=== PATIENT | female | born 1955 | race Caucasian/White ===

== ENCOUNTER 2017-08-26 10:30 | Inpatient (IN) | payer SELFPAY ==
[2017-08-26] MEDS ORDERED: NORMAL SALINE 1000 ML 1,000 ML IV ONE ×2 (10:57→11:54)
--- NOTE | 2017-08-26 11:00 | ER Document Report ---
ED Medical Screen (RME) - General Chief Complaint: Abdominal Pain Stated Complaint: FLU LIKE SYMPTOMS Time Seen by Provider: 08/26/17 10:56 Mode of Arrival: Wheelchair Information source: Patient COUNTRY TRAVELED TO/FROM: [facility] - [facility] Patient complains to provider of: flu-like symptoms; abd. pain Onset: Other - pt states she has been "sick" for several days with generalized abdominal pain and flu-like symptoms with cough and congestion. Plus vomiting. Did not get a flu shot this year. - Related Data Allergies/Adverse Reactions: No Known Allergies Allergy (Verified 08/26/17 10:31) Home Medications: Current Home Medications No Home Medications 08/26/17 [History] Past Medical History - Social History Chew tobacco use (# tins/day): No Frequency of alcohol use: Occasional Drug Abuse: None Renal/ Medical History: Denies: Hx Peritoneal Dialysis Physical Exam - Vital signs Vitals: Temp Pulse Resp BP Pulse Ox 97.6 F 116 H 20 127/81 H 98 08/26/17 10:35 08/26/17 10:35 08/26/17 10:35 08/26/17 10:35 08/26/17 10:35 Course - Vital Signs Vital signs: Temp Pulse Resp BP Pulse Ox 97.6 F 116 H 20 127/81 H 98 08/26/17 10:35 08/26/17 10:35 08/26/17 10:35 08/26/17 10:35 08/26/17 10:35
--- NOTE | 2017-08-26 12:03 | RADIOLOGY REPORT (SQ) ---
EXAM DESCRIPTION: ACUTE ABDOMEN SERIES COMPLETED DATE/TIME: 08/26/2017 11:51 am REASON FOR STUDY: abd pain COMPARISON: None. NUMBER OF VIEWS: Three views. TECHNIQUE: Frontal chest, supine abdomen and upright/decubitus abdomen radiographic images acquired. LIMITATIONS: None. FINDINGS: CHEST: Lungs clear of infiltrates. FREE AIR: None. No abnormal gas collections. BOWEL GAS PATTERN: Nonobstructive pattern. No dilated loops or air fluid levels. CALCIFICATIONS: No suspicious calcifications. HARDWARE: None in the abdomen. SOFT TISSUES: No gross mass or suggestion of organomegaly. BONES: No acute fracture. No worrisome bone lesions. OTHER: No other significant finding. IMPRESSION: NO RADIOGRAPHIC EVIDENCE FOR ACUTE ABDOMINAL DISEASE. TECHNICAL DOCUMENTATION: JOB ID: [id number] [employer]- All Rights Reserved
[2017-08-26 12:15] LABS: ALANINE AMINOTRANSFERASE 25 U/L (9-52); ALBUMIN 3.9 g/dL (3.5-5.0); ALKALINE PHOSPHATASE 216 U/L (38-126); ASPARTATE AMINO TRANSFERASE 25 U/L (14-36); BILIRUBIN,DIRECT 0.9 mg/dL (0.0-0.4); BLOOD UREA NITROGEN 26 mg/dL (7-20); CALCIUM 11.6 mg/dL (8.4-10.2); CARBON DIOXIDE 11 mmol/L (22-30); CHLORIDE 92 mmol/L (98-107); CREATININE RESULT 0.74 mg/dL (0.52-1.25); GLUCOSE 340 mg/dL (75-110); LIPASE 24.8 U/L (23-300); POTASSIUM 3.9 mmol/L (3.6-5.0)
[2017-08-26 12:17] LABS: HEMATOCRIT 41.6 % (36.0-47.0); HEMOGLOBIN 13.9 g/dL (12.0-15.5); HGB HCT DIFFERENCE 0.1; MEAN CORPUSCULAR HEMOGLOBIN 29.3 pg (27.0-33.4); MEAN CORPUSCULAR HGB CONC 33.4 g/dL (32.0-36.0); MEAN CORPUSCULAR VOLUME 88 fl (80-97); RED BLOOD COUNT 4.75 10^6/uL (3.72-5.28); RED CELL DISTRIBUTION WIDTH 15.1 % (11.5-14.0); WHITE BLOOD COUNT 15.2 10^3/uL (4.0-10.5)
[2017-08-26 12:19] LABS: BAND NEUTROPHILS % (MANUAL) 6 % (3-5); BASOPHILS % (MANUAL) 0 % (0-2); EOSINOPHILS % (MANUAL) 0 % (0-6); LYMPHOCYTES % (MANUAL) 6 % (13-45); TOTAL CELLS COUNTED 100; TOXIC GRANULATION SLIGHT
[2017-08-26 12:20] LABS: PLATELET CLUMPS PRESENT; RBC MORPHOLOGY COMMENT NORMO-CYTIC/CHROMIC
[2017-08-26 12:22] LABS: SODIUM 129.5 mmol/L (137-145)
[2017-08-26 12:23] LABS: APPEARANCE,URINE CLOUDY; BILIRUBIN,URINE NEGATIVE (NEGATIVE); GLUCOSE, URINE >=500 mg/dL (NEGATIVE); KETONES,URINE 80 mg/dL (NEGATIVE); LEUKOCYTE ESTERASE,URINE TRACE (NEGATIVE); NITRITE,URINE NEGATIVE (NEGATIVE); PROTEIN,URINE 100 mg/dL (NEGATIVE); URINE SPECIFIC GRAVITY 1.018
--- NOTE | 2017-08-26 12:23 | ER Document Report ---
ED General - General Chief Complaint: Abdominal Pain Stated Complaint: ABDOMINAL PAIN Time Seen by Provider: 08/26/17 10:56 Mode of Arrival: Wheelchair Information source: Patient Notes: 61-year-old female that presents today stating that she has felt "sick" for 1 week. She states she has had some increased frequency of urination with some dysuria as well as some intermittent vomiting. She states some subjective fevers initially without diarrhea. She also states some suprapubic nonradiating abdominal discomfort with some bilateral back pain. She denies any chest pain, cough, or leg swelling. Patient states she is supposed to be taking metformin twice a day but does not have insurance or does not have a primary care physician. She states she has not taken any diabetic medications in greater than a year. Patient states she has a history of kidney stones. COUNTRY TRAVELED TO/FROM: [facility] - [facility] Onset: Other - See above Quality of pain: Burning Severity: Mild Pain Level: Denies Associated symptoms: Other - See above Exacerbated by: Denies Relieved by: Denies Similar symptoms previously: No Recently seen / treated by doctor: No - Related Data Allergies/Adverse Reactions: No Known Allergies Allergy (Verified 08/26/17 10:31) Home Medications: Current Home Medications No Home Medications 08/26/17 [History] Past Medical History - General Information source: Patient - Social History Smoking Status: Former Smoker Cigarette use (# per day): No Chew tobacco use (# tins/day): No Smoking Education Provided: No Frequency of alcohol use: Occasional Drug Abuse: None Family History: Reviewed & Not Pertinent Patient has suicidal ideation: No Patient has homicidal ideation: No Renal/ Medical History: Denies: Hx Peritoneal Dialysis Review of Systems - Review of Systems Constitutional: Fever. denies: Malaise EENT: denies: Eye discharge, Nose discharge Cardiovascular: denies: Chest pain, Palpitations Respiratory: denies: Short of breath Gastrointestinal: Vomiting. denies: Diarrhea Genitourinary: Burning, Dysuria, Flank pain, Urgency. denies: Hematuria, Retention Musculoskeletal: denies: Leg swelling Skin: Other - no hives. denies: Rash Neurological/Psychological: Other - no slurred speech -: Yes All other systems reviewed and negative Physical Exam - Vital signs Vitals: Temp Pulse Resp BP Pulse Ox 97.6 F 116 H 20 127/81 H 98 08/26/17 10:35 12/10/17 10:35 08/26/17 10:35 08/26/17 10:35 08/26/17 10:35 Notes: Reviewed vital signs and nursing note as charted by RN. CONSTITUTIONAL: Alert and oriented and responds appropriately to questions. Well -appearing; well-nourished HEAD: Normocephalic; atraumatic EYES: PERRL ENT: Normal nose; no rhinorrhea; moist mucous membranes; pharynx without lesions noted NECK: Supple without meningismus; non-tender; no cervical lymphadenopathy, no masses CARD: Regular rate and rhythm; no murmurs RESP: Normal chest excursion without splinting or tachypnea; breath sounds clear and equal bilaterally ABD/GI: Normal bowel sounds; non-distended; soft, very minimally tender to the suprapubic region without rebound or guarding; old midline abdominal infraumbilical scar consistent with previous surgery for appendicitis BACK: The back appears normal and is non-tender to palpation, there is no CVA tenderness EXT: Normal ROM in all joints; non-tender to palpation; no cyanosis, no effusions, no edema SKIN: No acute lesions noted NEURO: Moves all extremities equally; Motor and sensory function intact PSYCH: The patient's mood and manner are appropriate. Grooming and personal hygiene are appropriate. Course - Re-evaluation Re-evalutation: 08/26/17 12:25 Given the above history and physical examination, we will obtain basic labs, urinalysis, liver panel, lipase, EKG, lactic acid level secondary to age, and reassess. Patient has been afebrile and has not taken any antipyretics. She denies any headache. I believe acute sepsis to be unlikely at this time. Accu-Chek is 324. Second liter of fluid has been provided. 08/26/17 12:35 EKG shows a heart of 101, sinus tachycardia, normal axis, no obvious ST elevation or depression, poor R-wave progression. 08/26/17 12:42 White blood cell count is elevated. The patient's urinalysis appears to show urinary tract infection. Normal lactic acid level with a low CO2. Rocephin, urine cultures, and a venous blood gas has been ordered. 2 L of fluid have been provided. 08/26/17 13:59 Lactic acid is recorded. PH 7.24. HCO3 is 15. 2 L of fluid has been given. I have spoken to the admitting hospitalist Dr. Goode who is asked me not to start an insulin drip at this time. They will come down and reassess the patient. CT shows no obvious renal colic. Heart rate has improved. Patient still has no tenderness to the abdomen. - Vital Signs Vital signs: Temp Pulse Resp BP Pulse Ox 97.6 F 116 H 20 127/81 H 98 08/26/17 10:35 08/26/17 10:35 08/26/17 10:35 08/26/17 10:35 08/26/17 10:35 - Laboratory Result Diagrams: 08/26/17 11:25 08/26/17 11:25 Laboratory results interpreted by me: 08/26/17 08/26/17 08/26/17 11:15 11:25 11:25 WBC 15.2 H RDW 15.1 H Seg Neuts % (Manual) 85 H Band Neutrophils % 6 H Lymphocytes % (Manual) 6 L Abs Neuts (Manual) 13.8 H VBG pH VBG HCO3 Sodium 129.5 L Chloride 92 L Carbon Dioxide 11 L Anion Gap 27 H BUN 26 H Glucose 340 H POC Glucose Calcium 11.6 H Direct Bilirubin 0.9 H Alkaline Phosphatase 216 H Total Protein 9.0 H Urine Protein 100 H Urine Glucose (UA) >=500 H Urine Ketones 80 H Urine Blood SMALL H Urine Urobilinogen 2.0 H Ur Leukocyte Esterase TRACE H 08/26/17 08/26/17 11:52 13:00 WBC RDW Seg Neuts % (Manual) Band Neutrophils % Lymphocytes % (Manual) Abs Neuts (Manual) VBG pH 7.24 L VBG HCO3 15.8 L Sodium Chloride Carbon Dioxide Anion Gap BUN Glucose POC Glucose 324 H Calcium Direct Bilirubin Alkaline Phosphatase Total Protein Urine Protein Urine Glucose (UA) Urine Ketones Urine Blood Urine Urobilinogen Ur Leukocyte Esterase Discharge - Discharge Clinical Impression: Metabolic acidosis, Dehydration UTI (urinary tract infection) Qualifiers: Urinary tract infection type: site unspecified Hematuria presence: without hematuria Qualified Code(s): N39.0 - Urinary tract infection, site not specified Condition: Fair Disposition: ADMITTED INPATIENT Admitting Provider: Hospitalist
[2017-08-26 12:25] LABS: ANION GAP 27 (5-19)
--- NOTE | 2017-08-26 12:25 | RADIOLOGY REPORT (SQ) ---
EXAM DESCRIPTION: CT LTD RENAL STONE PROTOCOL ON COMPLETED DATE/TIME: 08/26/2017 12:14 pm REASON FOR STUDY: ROOM 15 COMPARISON: None. TECHNIQUE: CT scan of the abdomen and pelvis performed without intravenous or oral contrast. Images reviewed with lung, soft tissue, and bone windows. Reconstructed coronal and sagittal MPR images revi ewed. All images stored on PACS. All CT scanners at this facility use dose modulation, iterative reconstruction, and/or weight based d osing when appropriate to reduce radiation dose to as low as reasonably achievable (ALARA). [facility]: Dose Right [facility]: CareDose [facility]: Dose Right [facility]: Teradose 4D [facility]: [employer] RADIATION DOSE: mGy. LIMITATIONS: None. FINDINGS: LOWER CHEST: No significant findings. No nodules or infiltrates. NON-CONTRASTED LIVER, SPLEEN, ADRENALS: Evaluation limited by lack of IV contrast. No identified sign ificant masses. PANCREAS: No masses. No peripancreatic inflammatory changes. GALLBLADDER: No identified stones by CT criteria. No inflammatory changes to suggest cholecystitis. RIGHT KIDNEY AND URETER: No suspicious masses. Assessment limited by lack of IV contrast. No signif icant calcifications. No hydronephrosis or hydroureter. LEFT KIDNEY AND URETER: No suspicious masses. Assessment limited by lack of IV contrast. No signifi cant calcifications. No hydronephrosis or hydroureter. AORTA AND RETROPERITONEUM: No aneurysm. No retroperitoneal masses or adenopathy. BOWEL AND PERITONEAL CAVITY: Ventral hernia contains nonobstructed bowel. APPENDIX: Surgically absent. PELVIS, BLADDER, AND ABDOMINAL WALL:No abnormal masses. No free fluid. Bladder normal. BONES: No significant findings. OTHER: No other significant finding. IMPRESSION: Ventral hernia contains nonobstructed bowel. COMMENT: Quality ID # [id number]: Final reports with documentation of one or more dose reduction techniques (e.g., Automated exposure control, adjustment of the mA and/or kV according to patient size, use of iterative reconstruction technique) TECHNICAL DOCUMENTATION: JOB ID: [id number]- All Rights Reserved
[2017-08-26] MEDS ORDERED: CEFTRIAXONE 1 GM/D5W RTU 1 GM/50 ML RTUPB IV ONE (12:42)
[2017-08-26 13:13] LABS: VENOUS BLOOD BASE EXCESS -10.8 mmol/L; VENOUS BLOOD HCO3 15.8 mmol/L (20-32); VENOUS BLOOD PCO2 37.6 mmHg (35-63); VENOUS BLOOD PH 7.24 (7.30-7.42)
[2017-08-26] MEDS ORDERED: MORPHINE SULFATE 10 MG/ML INJ IV ONE (14:27)
[2017-08-26] MEDS ORDERED: NORMAL SALINE 1000 ML 1,000 ML IV PRN (15:29)
[2017-08-26] MEDS ORDERED: IPRATROPIUM/ALBUTEROL 0.5-2.5 MG/3 ML AMPUL NEB PRN (15:29)
[2017-08-26] MEDS ORDERED: ONDANSETRON HCL INJ/PF 4 MG/2 ML SDV IV PRN (15:35)
[2017-08-26] MEDS ORDERED: OXYCODONE-ACETAMINOPHEN 5-325 MG TABLET PO PRN (15:35)
[2017-08-26] MEDS ORDERED: ACETAMINOPHEN 325 MG TABLET PO PRN (15:35)
[2017-08-26] MEDS ORDERED: MAG HYDROX/AL HYDROX/SIMETH SUSP 30 ML UDCUP PO PRN (15:35)
[2017-08-26] MEDS ORDERED: DEXTROSE 40% GEL 15 GM TUBE PO PRN ×2 (15:39)
[2017-08-26] MEDS ORDERED: DEXTROSE 50%-WATER 25 GM/50 ML DISP.SYRIN IV PRN ×2 (15:39)
[2017-08-26] MEDS ORDERED: GLUCAGON,HUMAN RECOMB 1 MG INJ IM PRN (15:39)
--- NOTE | 2017-08-26 16:07 | PDOC H&P ---
History of Present Illness Admission Date/PCP: 08/26/17 15:09 Patient complains of: Nausea and vomiting History of Present Illness: ADRIEL VIVAR is a 61 year old female with a past medical history of type 2 diabetes mellitus, hypertention, and tobacco dependence who presented to the emergency department today with a plane of 7 days of nausea and vomiting. She does not really report days urinary frequency and dysuria. She complains of suprapubic tenderness in mid to lower back pain. She reports that she has not taken any of her prescribed medications for over a year secondary to financial burden. She states that she has recently been accepted to the [facility], her first appointment is scheduled for mid-September. Workup in the emergency department revealed a UTI and positive keytones by urinalysis, and DKA with sodium of 129.k, K 3.9, Anion gap 27, and glucose of 340. Acute abdominal imaging, as well as, CT with Renal Stone protocol were normal. She is referred to the hospitalist service for admission. Past Medical History Cardiac Medical History: Reports: Hypertension Pulmonary Medical History: Reports: None EENT Medical History: Reports: None Neurological Medical History: Reports: None Endocrine Medical History: Reports: Diabetes Mellitus Type 2 Malignancy Medical History: Reports: None GI Medical History: Reports: None Musculoskeltal Medical History: Reports: None Skin Medical History: Reports: None Psychiatric Medical History: Reports: Tobacco Dependency Traumatic Medical History: Reports: None Hematology: Reports: None Infectious Medical History: Reports: None Past Surgical History Past Surgical History: Reports: Appendectomy Social History Information Source: Patient Lives with: Alone Smoking Status: Current Every Day Smoker Cigarettes Packs Per Day: 1 Last Time Smoked: 7 days ago Frequency of Alcohol Use: Rare Hx Recreational Drug Use: No Hx Prescription Drug Abuse: No - Advance Directive Resuscitation Status: Full Code Surrogate healthcare decision maker:: Patient's son: Blayne Whiting ([phone]) Family History Family History: Reviewed & Not Pertinent Parental Family History Reviewed: Yes Children Family History Reviewed: Yes Sibling(s) Family History Reviewed.: Yes Medication/Allergy Home Medications: No Home Medications 08/26/17 Allergies/Adverse Reactions: No Known Allergies Allergy (Verified 08/26/17 10:31) Review of Systems Constitutional: PRESENT: fatigue, fever(s), headache(s), weakness. ABSENT: night sweats Eyes: ABSENT: visual disturbances Ears: ABSENT: hearing changes Cardiovascular: ABSENT: chest pain, dyspnea on exertion, edema, orthropnea, palpitations Respiratory: ABSENT: cough, hemoptysis Gastrointestinal: PRESENT: abdominal pain, nausea, vomiting. ABSENT: constipation, diarrhea, hematemesis, hematochezia Genitourinary: PRESENT: dysuria, hematuria Musculoskeletal: PRESENT: back pain. ABSENT: joint swelling Integumentary: ABSENT: rash, wounds Neurological: ABSENT: abnormal gait, abnormal speech, confusion, dizziness, focal weakness, syncope Psychiatric: ABSENT: anxiety, depression, homidical ideation, suicidal ideation Endocrine: ABSENT: cold intolerance, heat intolerance, polydipsia, polyuria Hematologic/Lymphatic: ABSENT: easy bleeding, easy bruising Physical Exam Vital Signs: Temp Pulse Resp BP Pulse Ox 97.6 F 116 H 20 127/81 H 98 08/26/17 10:35 08/26/17 10:35 08/26/17 10:35 08/26/17 10:35 08/26/17 10:35 General appearance: PRESENT: no acute distress, disheveled, thin, well-developed , well-nourished Head exam: PRESENT: atraumatic, normocephalic Eye exam: PRESENT: conjunctiva pink, EOMI, PERRLA. ABSENT: scleral icterus Ear exam: PRESENT: normal external ear exam Mouth exam: PRESENT: moist, tongue midline Neck exam: ABSENT: carotid bruit, JVD, lymphadenopathy, thyromegaly Respiratory exam: PRESENT: clear to auscultation jose manuel. ABSENT: rales, rhonchi, wheezes Cardiovascular exam: PRESENT: RRR. ABSENT: diastolic murmur, rubs, systolic murmur Pulses: PRESENT: normal dorsalis pedis pul Vascular exam: PRESENT: normal capillary refill GI/Abdominal exam: PRESENT: normal bowel sounds, soft, tenderness. ABSENT: distended, guarding, mass, organolmegaly, rebound Rectal exam: PRESENT: deferred Extremities exam: PRESENT: full ROM. ABSENT: calf tenderness, clubbing, pedal edema Neurological exam: PRESENT: alert, awake, oriented to person, oriented to place , oriented to time, oriented to situation, CN II-XII grossly intact. ABSENT: motor sensory deficit Psychiatric exam: PRESENT: appropriate affect, normal mood. ABSENT: homicidal ideation, suicidal ideation Skin exam: PRESENT: dry, intact, warm. ABSENT: cyanosis, rash Results Impressions: Acute Abdomen Series 08/26/17 10:57 IMPRESSION: NO RADIOGRAPHIC EVIDENCE FOR ACUTE ABDOMINAL DISEASE. Limited or Localized CT 08/26/17 11:54 IMPRESSION: Ventral hernia contains nonobstructed bowel. Assessment & Plan - Diagnosis (1) UTI (urinary tract infection) Qualifiers: Urinary tract infection type: site unspecified Hematuria presence: without hematuria Qualified Code(s): N39.0 - Urinary tract infection, site not specified Is this a current diagnosis for this admission?: Yes Plan: Pt with classic UTI symptoms confirmed by Urinalysis. WBCs are elevated to 15.2 in setting of DKA. Will trend. Urine culture pending. Placed on Rocephin. Tylenol as needed with Oxycodone for breakthrough pain. Will schedule Pyridium. (2) Diabetic ketoacidosis Qualifiers: Diabetes mellitus complication detail: without coma Is this a current diagnosis for this admission?: Yes Plan: Pt presented with 1 week of nausea and vomiting. She reports that she has not had her oral diabetic medications in over a year. Work up reveals DKA with glucose of 340, anion gap of 11, Na 129.5, and normal potassium. UA positive for glucose and keytones. Will admit to IMCU on telemetry. Pt to receive IVF rehydration. She will placed on an Insulin gtt with accuchecks monitored hourly. Will obtain BMP q4 hours. Clear liquid diet. Advance as tolerated. Will ask the health educator and registered nurse surgical services to meet with the patient. Will also ask the patient navigator and brand planner to meet with the patient to assist with financial/social resources. (3) Hyponatremia Plan: Likely secondary to dehydration, DKA, nausea and vomiting 1 week. Sodium on admission is 129.5. Patient has received 2 L IV fluids in the emergency department. We will continue maintenance IV fluids. Patient is placed on a clear liquid diet with IV zofran as needed for nausea. Trend BMP. (4) Dehydration Is this a current diagnosis for this admission?: Yes Plan: Secondary to DKA with nausea and vomiting. Plan as above. (5) Nausea & vomiting Is this a current diagnosis for this admission?: Yes Plan: Secondary to DKA. Plan as above. (6) Diabetes mellitus with hyperglycemia Qualifiers: Diabetes mellitus type: type 2 Is this a current diagnosis for this admission?: Yes Plan: Will manage DKA as above. Will ask brand planner, patient navigator, registered nurse surgical services, and health educator to meet with the patient. Will check TSH, Lipid, and A1C. (7) Tobacco dependence Is this a current diagnosis for this admission?: Yes Plan: Encouraged smoking cessation. Nicotine replacement therapy provided. - Time Time Spent: 50 to 70 Minutes Smoking Cessation Education: 3 to 10 minutes Medications reviewed and adjusted accordingly: Yes Anticipated discharge: Home
[2017-08-26 16:42] LABS: BLOOD UREA NITROGEN 23 mg/dL (7-20); CALCIUM 9.9 mg/dL (8.4-10.2); CARBON DIOXIDE 11 mmol/L (22-30); CREATININE RESULT 0.62 mg/dL (0.52-1.25); GLUCOSE 276 mg/dL (75-110)
[2017-08-26 16:54] LABS: CHLORIDE 99 mmol/L (98-107); POTASSIUM 3.8 mmol/L (3.6-5.0); SODIUM 130.9 mmol/L (137-145)
[2017-08-26 16:56] LABS: ANION GAP 21 (5-19)
[2017-08-26] MEDS: NORMAL SALINE 100 ML with INSULIN REGULAR, HUMAN 100 UNIT IV PRN ×2 (16:58)
[2017-08-26] MEDS ORDERED: ENOXAPARIN SODIUM INJ 40 MG/0.4 ML DISP.SYRIN SUBCUT ONE (17:00)
[2017-08-26 20:06] LABS: ANION GAP 16 (5-19); BLOOD UREA NITROGEN 22 mg/dL (7-20); CALCIUM 9.4 mg/dL (8.4-10.2); CARBON DIOXIDE 13 mmol/L (22-30); CHLORIDE 100 mmol/L (98-107); CREATININE RESULT 0.52 mg/dL (0.52-1.25); GLUCOSE 320 mg/dL (75-110); POTASSIUM 3.2 mmol/L (3.6-5.0); SODIUM 128.7 mmol/L (137-145)
[2017-08-26] MEDS ORDERED: POTASSI CL 20 MEQ/D5-1/2NS 1L 1,000 ML IV ONE (22:21)
[2017-08-26] MEDS: NICOTINE 14 MG/24 HR PATCH.TD24 TD SCH (22:33)
[2017-08-26] MEDS: FAMOTIDINE 20 MG TABLET PO SCH (22:34)
[2017-08-26] MEDS ORDERED: PHENAZOPYRIDINE HCL 100 MG TABLET ONE (22:37)
--- NOTE | 2017-08-26 22:37 | EKG REPORT ---
SEVERITY:- BORDERLINE ECG - SINUS TACHYCARDIA CONSIDER ANTERIOR INFARCT : Confirmed by: Maldonado Stratton 26-Aug-2017 22:37:01
[2017-08-27] MEDS: PHENAZOPYRIDINE HCL 100 MG TABLET PO SCH ×4 (00:01→22:56)
[2017-08-27 00:12] LABS: ANION GAP 9 (5-19); BLOOD UREA NITROGEN 19 mg/dL (7-20); CALCIUM 9.1 mg/dL (8.4-10.2); CARBON DIOXIDE 17 mmol/L (22-30); CHLORIDE 103 mmol/L (98-107); CREATININE RESULT 0.47 mg/dL (0.52-1.25); GLUCOSE 193 mg/dL (75-110); POTASSIUM 3.1 mmol/L (3.6-5.0); SODIUM 129.4 mmol/L (137-145)
[2017-08-27] MEDS: POTASSI CL 20 MEQ/50 ML RIDER 20 MEQ/50 ML RTUPB IV SCH ×2 (01:15→03:20)
[2017-08-27] MEDS: POTASSI CL 20 MEQ/D5-1/2NS 1L 1,000 ML IV PRN ×2 (02:35→06:50)
[2017-08-27 04:30] LABS: ABSOLUTE LYMPHOCYTES (AUTO) 0.8 10^3/uL (0.5-4.7); ABSOLUTE MONOCYTES (AUTO) 1.3 10^3/uL (0.1-1.4); ABSOLUTE NEUT (AUTO) 9.3 10^3/uL (1.7-8.2); BASOPHILS % (AUTO) 0.1 % (0-2); EOSINOPHILS % (AUTO) 0.2 % (0-6); HGB HCT DIFFERENCE 1.2; LYMPHOCYTES % (AUTO) 6.8 % (13-45); MEAN CORPUSCULAR HEMOGLOBIN 29.7 pg (27.0-33.4); MEAN CORPUSCULAR HGB CONC 34.5 g/dL (32.0-36.0); MEAN CORPUSCULAR VOLUME 86 fl (80-97); MONOCYTES % (AUTO) 11.1 % (3-13); RED BLOOD COUNT 3.84 10^6/uL (3.72-5.28); RED CELL DISTRIBUTION WIDTH 14.6 % (11.5-14.0); SEGMENTED NEUTROPHILS % (AUTO) 81.8 % (42-78)
[2017-08-27 04:31] LABS: WHITE BLOOD COUNT 11.4 10^3/uL (4.0-10.5)
[2017-08-27] MEDS ORDERED: INSULIN REG, HUMAN 100 UNIT/ML 3 ML VIAL (PYX) ONE (04:35)
[2017-08-27] MEDS: NORMAL SALINE 100 ML with INSULIN REGULAR, HUMAN 100 UNIT IV PRN ×2 (04:40)
[2017-08-27 04:46] LABS: HEMOGLOBIN 11.4 g/dL (12.0-15.5)
[2017-08-27 04:52] LABS: ANION GAP 13 (5-19); BLOOD UREA NITROGEN 16 mg/dL (7-20); CALCIUM 8.9 mg/dL (8.4-10.2); CARBON DIOXIDE 14 mmol/L (22-30); CHLORIDE 106 mmol/L (98-107); CHOLESTEROL 196.91 mg/dL (0-200); CREATININE RESULT 0.47 mg/dL (0.52-1.25); Direct HDL 22 mg/dL (>40); GLUCOSE 180 mg/dL (75-110); POTASSIUM 3.8 mmol/L (3.6-5.0); SODIUM 132.6 mmol/L (137-145); TRIGLYCERIDES 514 mg/dL (<150)
[2017-08-27 05:02] LABS: DIRECT LDL 41 mg/dL (<100)
[2017-08-27] MEDS ORDERED: POTASSI CL 20 MEQ/D5-1/2NS 1L 1,000 ML IV PRN ×2 (07:31→09:25)
[2017-08-27 08:21] LABS: ANION GAP 9 (5-19); BLOOD UREA NITROGEN 13 mg/dL (7-20); CARBON DIOXIDE 16 mmol/L (22-30); CHLORIDE 108 mmol/L (98-107); CREATININE RESULT 0.49 mg/dL (0.52-1.25); GLUCOSE 116 mg/dL (75-110); POTASSIUM 3.8 mmol/L (3.6-5.0); SODIUM 132.8 mmol/L (137-145)
[2017-08-27] MEDS ORDERED: PHENAZOPYRIDINE HCL 100 MG TABLET PO ONE (09:00)
[2017-08-27] MEDS: FAMOTIDINE 20 MG TABLET PO SCH ×2 (09:02→22:56)
[2017-08-27] MEDS: FENOFIBRATE NANOCRYSTALLIZED 145 MG TABLET PO SCH (09:02)
[2017-08-27] MEDS: ENOXAPARIN SODIUM INJ 40 MG/0.4 ML DISP.SYRIN SUBCUT SCH (09:04)
[2017-08-27] MEDS: NICOTINE 14 MG/24 HR PATCH.TD24 TD SCH (09:04)
[2017-08-27] MEDS ORDERED: OXYCODONE-ACETAMINOPHEN 5-325 MG TABLET PO PRN (09:24)
[2017-08-27] MEDS ORDERED: NORMAL SALINE 1000 ML 1,000 ML IV PRN (09:38)
[2017-08-27] MEDS ORDERED: ONDANSETRON HCL INJ/PF 4 MG/2 ML SDV IV PRN (10:00)
[2017-08-27] MEDS ORDERED: MAG HYDROX/AL HYDROX/SIMETH SUSP 30 ML UDCUP PO PRN (10:00)
[2017-08-27] MEDS ORDERED: INSULIN GLARGINE,HUM.REC.ANLOG 300 UNIT/3 ML INSULN.PEN SUBCUT SCH (10:00)
[2017-08-27] MEDS: KETOROLAC TROMETHAMINE INJ/PF 30 MG/1 ML SDV IV PRN ×2 (10:14→16:19)
[2017-08-27] MEDS: CEFTRIAXONE 1 GM/D5W RTU 1 GM/50 ML RTUPB IV SCH (11:57)
[2017-08-27 12:35] LABS: ANION GAP 11 (5-19); BLOOD UREA NITROGEN 12 mg/dL (7-20); CALCIUM 8.7 mg/dL (8.4-10.2); CARBON DIOXIDE 13 mmol/L (22-30); CHLORIDE 105 mmol/L (98-107); CREATININE RESULT 0.44 mg/dL (0.52-1.25); GLUCOSE 280 mg/dL (75-110); POTASSIUM 3.9 mmol/L (3.6-5.0); SODIUM 129.4 mmol/L (137-145)
[2017-08-27] MEDS ORDERED: DEXTROSE 40% GEL 15 GM TUBE PO PRN ×2 (12:52)
[2017-08-27] MEDS ORDERED: DEXTROSE 50%-WATER 25 GM/50 ML DISP.SYRIN IV PRN ×2 (12:52)
[2017-08-27] MEDS ORDERED: GLUCAGON,HUMAN RECOMB 1 MG INJ IM PRN (12:52)
--- NOTE | 2017-08-27 12:55 | PDOC PROGRESS REPORT ---
Subjective Progress Note for:: 08/27/17 Subjective:: Patient was seen on morning rounds resting in bed comfortably she reports that she is feeling better from yesterday. She continues to have a low-grade fever with chills, fatigue, lower abdominal pain, and urinary frequency. She reports that her primary complaint is her bilateral lower back pain. She denies nausea, vomiting, diarrhea. Overall she says that she is feeling better and requests to be allowed to eat today. She has no other questions or concerns at this time. Reason For Visit: UTI,DEHYDRATION Physical Exam Vital Signs: Temp Pulse Resp BP Pulse Ox 97.8 F 105 H 12 101/64 95 08/27/17 11:38 08/27/17 12:19 08/27/17 12:19 08/27/17 11:38 08/27/17 12:19 Intake & Output 08/26/17 08/27/17 08/28/17 06:59 06:59 06:59 Intake Total 4350 Output Total 1800 Balance 2550 Weight 60.1 kg General appearance: PRESENT: no acute distress, disheveled, well-developed, well -nourished Head exam: PRESENT: atraumatic, normocephalic Eye exam: PRESENT: conjunctiva pink, EOMI, PERRLA. ABSENT: scleral icterus Ear exam: PRESENT: normal external ear exam Mouth exam: PRESENT: moist, tongue midline Neck exam: ABSENT: carotid bruit, JVD, lymphadenopathy, thyromegaly Respiratory exam: PRESENT: clear to auscultation jose manuel, symmetrical, unlabored. ABSENT: rales, rhonchi, wheezes Cardiovascular exam: PRESENT: RRR, tachycardia. ABSENT: diastolic murmur, rubs , systolic murmur Pulses: PRESENT: normal dorsalis pedis pul Vascular exam: PRESENT: normal capillary refill GI/Abdominal exam: PRESENT: normal bowel sounds, soft. ABSENT: distended, guarding, mass, organolmegaly, rebound, tenderness Rectal exam: PRESENT: deferred Extremities exam: PRESENT: full ROM. ABSENT: calf tenderness, clubbing, pedal edema Neurological exam: PRESENT: alert, awake, oriented to person, oriented to place , oriented to time, oriented to situation, CN II-XII grossly intact. ABSENT: motor sensory deficit Psychiatric exam: PRESENT: appropriate affect, normal mood. ABSENT: homicidal ideation, suicidal ideation Skin exam: PRESENT: dry, intact, warm. ABSENT: cyanosis, rash Results Laboratory Results: 08/27/17 03:57 08/27/17 11:36 08/26/17 08/26/17 08/26/17 16:05 19:30 19:30 WBC RBC Hgb Hct MCV MCH MCHC RDW Plt Count Seg Neutrophils % Lymphocytes % Monocytes % Eosinophils % Basophils % Absolute Neutrophils Absolute Lymphocytes Absolute Monocytes Absolute Eosinophils Absolute Basophils Sodium 130.9 L 128.7 L Potassium 3.8 3.2 L Chloride 99 100 Carbon Dioxide 11 L 13 L Anion Gap 21 H 16 BUN 23 H 22 H Creatinine 0.62 0.52 Est GFR ( Amer) > 60 > 60 Est GFR (Non-Af Amer) > 60 > 60 Glucose 276 H 320 H Calcium 9.9 9.4 Magnesium 2.0 Triglycerides Cholesterol LDL Cholesterol Direct VLDL Cholesterol HDL Cholesterol TSH 08/26/17 08/27/17 08/27/17 23:42 03:57 03:57 WBC 11.4 H RBC 3.84 Hgb 11.4 L D Hct 33.0 L MCV 86 MCH 29.7 MCHC 34.5 RDW 14.6 H Plt Count 133 L Seg Neutrophils % 81.8 H Lymphocytes % 6.8 L Monocytes % 11.1 Eosinophils % 0.2 Basophils % 0.1 Absolute Neutrophils 9.3 H Absolute Lymphocytes 0.8 Absolute Monocytes 1.3 Absolute Eosinophils 0.0 Absolute Basophils 0.0 Sodium 129.4 L 132.6 L Potassium 3.1 L 3.8 Chloride 103 106 Carbon Dioxide 17 L 14 L Anion Gap 9 13 BUN 19 16 Creatinine 0.47 L 0.47 L Est GFR ( Amer) > 60 > 60 Est GFR (Non-Af Amer) > 60 > 60 Glucose 193 H 180 H Calcium 9.1 8.9 Magnesium Triglycerides Cholesterol LDL Cholesterol Direct VLDL Cholesterol HDL Cholesterol TSH 08/27/17 08/27/17 08/27/17 03:57 03:57 07:22 WBC RBC Hgb Hct MCV MCH MCHC RDW Plt Count Seg Neutrophils % Lymphocytes % Monocytes % Eosinophils % Basophils % Absolute Neutrophils Absolute Lymphocytes Absolute Monocytes Absolute Eosinophils Absolute Basophils Sodium 132.8 L Potassium 3.8 Chloride 108 H Carbon Dioxide 16 L Anion Gap 9 BUN 13 Creatinine 0.49 L Est GFR ( Amer) > 60 Est GFR (Non-Af Amer) > 60 Glucose 116 H Calcium 9.0 Magnesium Triglycerides 514 H Cholesterol 196.91 LDL Cholesterol Direct 41 VLDL Cholesterol UNABLE TO CALCULATE HDL Cholesterol 22 L TSH 0.51 08/27/17 11:36 WBC RBC Hgb Hct MCV MCH MCHC RDW Plt Count Seg Neutrophils % Lymphocytes % Monocytes % Eosinophils % Basophils % Absolute Neutrophils Absolute Lymphocytes Absolute Monocytes Absolute Eosinophils Absolute Basophils Sodium 129.4 L Potassium 3.9 Chloride 105 Carbon Dioxide 13 L Anion Gap 11 BUN 12 Creatinine 0.44 L Est GFR ( Amer) > 60 Est GFR (Non-Af Amer) > 60 Glucose 280 H Calcium 8.7 Magnesium Triglycerides Cholesterol LDL Cholesterol Direct VLDL Cholesterol HDL Cholesterol TSH Impressions: Acute Abdomen Series 08/26/17 10:57 IMPRESSION: NO RADIOGRAPHIC EVIDENCE FOR ACUTE ABDOMINAL DISEASE. Limited or Localized CT 08/26/17 11:54 IMPRESSION: Ventral hernia contains nonobstructed bowel. Assessment & Plan - Diagnosis (1) Sepsis Qualifiers: Sepsis type: sepsis due to unspecified organism Qualified Code(s): A41.9 - Sepsis, unspecified organism Is this a current diagnosis for this admission?: Yes Plan: Improving. Sepsis as evidenced by leukocytosis, tachycardia, hypotension, and positive blood cultures. The patient has received IV fluid resuscitation. She has been placed on empiric Rocephin. Blood cultures: Gram-negative rods Urine culture: Gram-negative rods, group B beta Streptococcus We will continue IV Rocephin and IV fluids. Will narrow antibiotics as sensitivities result. (2) UTI (urinary tract infection) Qualifiers: Urinary tract infection type: site unspecified Hematuria presence: without hematuria Qualified Code(s): N39.0 - Urinary tract infection, site not specified Is this a current diagnosis for this admission?: Yes Plan: Symptoms have improved, continues to have urinary frequency, suprapubic pain, bilateral lower back pain. WBCs are trending down. Urine culture: Gram-negative rods and group B Streptococcus Continue Rocephin. Tylenol, IV Toradol needed with with Oxycodone for breakthrough pain. Schedule Pyridium. (3) Diabetic ketoacidosis Qualifiers: Diabetes mellitus complication detail: without coma Is this a current diagnosis for this admission?: Yes Plan: Pt presented with 1 week of nausea and vomiting. She reports that she has not had her oral diabetic medications in over a year. Work up reveals DKA with glucose of 340, anion gap of 11, Na 129.5, and normal potassium. UA positive for glucose and keytones. Admitted to [facility] on telemetry. Pt receiving IVF. She will initially placed on an Insulin gtt with accuchecks monitored hourly. Anion gap has closed and she has been since transitioned to subcutaneous Levaquin with Humalog for sliding scale coverage. Clear liquid diet. Advance as tolerated. Will ask the prosthetic aides teacher and long term acute care registered nurse to meet with the patient. Will also ask the patient navigator and data processing systems project planner to meet with the patient to assist with financial/social resources. (4) Hyponatremia Plan: Likely secondary to dehydration, DKA, nausea and vomiting 1 week. Sodium on admission is 129.5. Continue maintenance IV fluids. Patient is placed on a clear liquid diet with IV zofran as needed for nausea. Will advance diet as tolerated. Trend BMP. (5) Dehydration Is this a current diagnosis for this admission?: Yes Plan: Secondary to DKA with nausea and vomiting. Plan as above. (6) Nausea & vomiting Is this a current diagnosis for this admission?: Yes Plan: Resolved. Secondary to DKA. Plan as above. (7) Diabetes mellitus with hyperglycemia Qualifiers: Diabetes mellitus type: type 2 Is this a current diagnosis for this admission?: Yes Plan: Will manage DKA as above. A1c 11.2%. Tsh is appropriate. Will ask data processing systems project planner, patient navigator, long term acute care registered nurse, and prosthetic aides teacher to meet with the patient. (8) Tobacco dependence Is this a current diagnosis for this admission?: Yes Plan: Encouraged smoking cessation. Nicotine replacement therapy provided. - Time Time Spent with patient: 35 or more minutes Medications reviewed and adjusted accordingly: Yes Anticipated discharge: Home - Inpatient Certification Based on my medical assessment, after consideration of the patient's comorbidities, presenting symptoms, or acuity I expect that the services needed warrant INPATIENT care.: Yes I certify that my determination is in accordance with my understanding of Medicare's requirements for reasonable and necessary INPATIENT services [42 CFR 412.3e].: Yes Medical Necessity: Need Close Monitoring Due to Risk of Patient Decompensation, Need For IV Fluids, Need for IV Antibiotics, Risk of Complication if Not Cared For in Hospital
[2017-08-27] MEDS: NORMAL SALINE 1000 ML 1,000 ML IV PRN ×3 (14:25→23:01)
[2017-08-27] MEDS: INSULIN REG, HUMAN 100 UNIT/ML 3 ML VIAL (PYX) SUBCUT PRN ×2 (16:19→22:57)
[2017-08-27 20:07] LABS: ANION GAP 13 (5-19); BLOOD UREA NITROGEN 13 mg/dL (7-20); CALCIUM 9.1 mg/dL (8.4-10.2); CARBON DIOXIDE 15 mmol/L (22-30); CHLORIDE 106 mmol/L (98-107); GLUCOSE 288 mg/dL (75-110); POTASSIUM 3.4 mmol/L (3.6-5.0); SODIUM 134.2 mmol/L (137-145)
[2017-08-28 03:34] LABS: ABSOLUTE NEUT (AUTO) 9.2 10^3/uL (1.7-8.2); BASOPHILS % (AUTO) 0.1 % (0-2); EOSINOPHILS % (AUTO) 0.4 % (0-6); HEMATOCRIT 32.9 % (36.0-47.0); HEMOGLOBIN 11.4 g/dL (12.0-15.5); HGB HCT DIFFERENCE 1.3; LYMPHOCYTES % (AUTO) 8.5 % (13-45); MEAN CORPUSCULAR HEMOGLOBIN 29.6 pg (27.0-33.4); MEAN CORPUSCULAR HGB CONC 34.7 g/dL (32.0-36.0); MEAN CORPUSCULAR VOLUME 85 fl (80-97); RED BLOOD COUNT 3.85 10^6/uL (3.72-5.28); RED CELL DISTRIBUTION WIDTH 14.6 % (11.5-14.0); WHITE BLOOD COUNT 11.2 10^3/uL (4.0-10.5)
[2017-08-28 04:10] LABS: ANION GAP 10 (5-19); BLOOD UREA NITROGEN 13 mg/dL (7-20); CALCIUM 8.9 mg/dL (8.4-10.2); CARBON DIOXIDE 16 mmol/L (22-30); CHLORIDE 112 mmol/L (98-107); CREATININE RESULT 0.53 mg/dL (0.52-1.25); GLUCOSE 297 mg/dL (75-110); POTASSIUM 3.6 mmol/L (3.6-5.0); SODIUM 138.3 mmol/L (137-145)
[2017-08-28] MEDS: PHENAZOPYRIDINE HCL 100 MG TABLET PO SCH ×3 (06:36→21:10)
--- NOTE | 2017-08-28 07:15 | Physician Advisory Note ---
Physician Advisor ProgressNote .: Pursuant to the plan for [facility], I have reviewed the medical record for this patient. Physician Advisor Statement: Please consider documentin. "possible sepsis, due to UTI, present on adm, evidenced by ..." (were her tachycardia/leukocytosis/mild hypotension due to sepsis, or already sufficiently accounted for by the UTI, DKA, & N/V/dehydration?) - vs. - "GNR bacteremia" (if not felt to be clinically septic initially, as indicated by ED dr) 2. "Acute pyelonephritis" or "acute cystitis"? 3. Status: appropriate for Inpatient status. 4. Mild hypoxemia noted in 08/27 & 08/28 very early AMs - possibly indicating sleep apnea? or from severe sepsis? or ... CK
[2017-08-28] MEDS: OXYCODONE-ACETAMINOPHEN 5-325 MG TABLET PO PRN ×2 (08:32→21:13)
[2017-08-28] MEDS: NORMAL SALINE 1000 ML 1,000 ML IV PRN (08:32)
[2017-08-28] MEDS: INSULIN REG, HUMAN 100 UNIT/ML 3 ML VIAL (PYX) SUBCUT PRN ×4 (08:32→21:29)
[2017-08-28] MEDS: FAMOTIDINE 20 MG TABLET PO SCH ×2 (09:46→21:11)
[2017-08-28] MEDS: NICOTINE 14 MG/24 HR PATCH.TD24 TD SCH (09:46)
[2017-08-28] MEDS: FENOFIBRATE NANOCRYSTALLIZED 145 MG TABLET PO SCH (09:46)
[2017-08-28] MEDS: ENOXAPARIN SODIUM INJ 40 MG/0.4 ML DISP.SYRIN SUBCUT SCH (09:47)
[2017-08-28] MEDS: INSULIN GLARGINE,HUM.REC.ANLOG 300 UNIT/3 ML INSULN.PEN SUBCUT SCH (09:47)
--- NOTE | 2017-08-28 11:45 | PDOC PROGRESS REPORT ---
Subjective Progress Note for:: 08/28/17 Subjective:: Patient was seen on morning rounds sitting up to the edge of the bed eating breakfast. She states that she is feeling much better and asks to be discharged home. She does report continued bilateral lower back pain and suprapubic pain which is well controlled with as needed Toradol and Percocet. She reports that her nausea and vomiting have resolved. Otherwise she has no other questions or concerns today. Reason For Visit: PYELONEPHRITIS,DKA Physical Exam Vital Signs: Temp Pulse Resp BP Pulse Ox 98.2 F 102 H 18 136/73 H 95 08/28/17 07:29 08/28/17 07:29 08/28/17 07:29 08/28/17 07:29 08/28/17 07:29 General appearance: PRESENT: no acute distress, disheveled, thin, well-developed , well-nourished Head exam: PRESENT: atraumatic, normocephalic Eye exam: PRESENT: conjunctiva pink, EOMI, PERRLA. ABSENT: scleral icterus Ear exam: PRESENT: normal external ear exam Mouth exam: PRESENT: moist, tongue midline Neck exam: ABSENT: carotid bruit, JVD, lymphadenopathy, thyromegaly Respiratory exam: PRESENT: clear to auscultation jose manuel, symmetrical, unlabored. ABSENT: rales, rhonchi, wheezes Cardiovascular exam: PRESENT: RRR, +S1, +S2, tachycardia. ABSENT: diastolic murmur, rubs, systolic murmur Pulses: PRESENT: normal dorsalis pedis pul Vascular exam: PRESENT: normal capillary refill GI/Abdominal exam: PRESENT: normal bowel sounds, soft. ABSENT: distended, guarding, mass, organolmegaly, rebound, tenderness Rectal exam: PRESENT: deferred Gentrourinary exam: PRESENT: other - Positive CVA tenderness on percussion Extremities exam: PRESENT: full ROM. ABSENT: calf tenderness, clubbing, pedal edema Neurological exam: PRESENT: alert, awake, oriented to person, oriented to place , oriented to time, oriented to situation, CN II-XII grossly intact. ABSENT: motor sensory deficit Psychiatric exam: PRESENT: appropriate affect, normal mood. ABSENT: homicidal ideation, suicidal ideation Skin exam: PRESENT: dry, intact, warm. ABSENT: cyanosis, rash Results Impressions: Acute Abdomen Series 08/26/17 10:57 IMPRESSION: NO RADIOGRAPHIC EVIDENCE FOR ACUTE ABDOMINAL DISEASE. Limited or Localized CT 08/26/17 11:54 IMPRESSION: Ventral hernia contains nonobstructed bowel. Assessment & Plan - Diagnosis (1) Sepsis Qualifiers: Sepsis type: sepsis due to unspecified organism Qualified Code(s): A41.9 - Sepsis, unspecified organism Is this a current diagnosis for this admission?: Yes Plan: Improving. The patient is gradually improving: She does remain tachycardic, however, her hypotension has resolved. Leukocytosis is trending downwards. Patient remains afebrile. Possible sepsis due to pyelonephritis, present on admission, as evidenced by leukocytosis, tachycardia, hypotension. The patient was resuscitated with IV fluids and continues to receive maintenance IVF. She has been placed on empiric Rocephin. Blood cultures: Gram-negative rods Urine culture: Pansensitive E. coli, group B beta Streptococcus We will continue IV Rocephin and IV fluids. Will narrow antibiotics as sensitivities result. (2) Pyelonephritis Is this a current diagnosis for this admission?: Yes Plan: Improved. The patient presented with suprapubic tenderness, CVA tenderness, leukocytosis, positive UA. Urine culture: Pansensitive E. coli and group B Streptococcus Continue Rocephin. Tylenol, IV Toradol as needed with with Oxycodone for breakthrough pain. Schedule Pyridium. (3) Diabetic ketoacidosis Qualifiers: Diabetes mellitus complication detail: without coma Is this a current diagnosis for this admission?: Yes Plan: DKA complicated by sepsis as a result of pyelonephritis. The patient's anion gap has closed. The patient remains acidotic with a bicarb of 16. She will continue receiving IV fluids. She has been started on Lantus with Humalog for sliding scale coverage. She has been advanced to a consistent carb diet. Will ask the agriscience technology instructor and registered nurse cardiovascular icu to meet with the patient. Will also ask the patient navigator and production planner scheduler to meet with the patient to assist with financial/social resources. (4) Hyponatremia Plan: Replete. Likely secondary to dehydration, DKA, nausea and vomiting 1 week. Sodium on admission is 129.5 at 138.3. Continue maintenance IV fluids for metabolic acidosis secondary to sepsis and resolving DKA. Trend BMP. (5) Dehydration Is this a current diagnosis for this admission?: Yes Plan: Secondary to DKA with nausea and vomiting. Plan as above. (6) Nausea & vomiting Is this a current diagnosis for this admission?: Yes Plan: Resolved. Secondary to DKA. Plan as above. (7) Diabetes mellitus with hyperglycemia Qualifiers: Diabetes mellitus type: type 2 Is this a current diagnosis for this admission?: Yes Plan: Will manage DKA as above. A1c 11.2%. Tsh is appropriate. Will ask production planner scheduler, patient navigator, registered nurse cardiovascular icu, and agriscience technology instructor to meet with the patient. The patient is requested to be discharged today. I have significant concerns that she will have poor follow-up as an outpatient. The patient will benefit from meeting with production planner scheduler and patient navigator prior to discharge to ensure that she has access to social media specialist and appropriate follow-up with primary care. (8) Tobacco dependence Is this a current diagnosis for this admission?: Yes Plan: Encouraged smoking cessation. Nicotine replacement therapy provided. (9) UTI (urinary tract infection) Qualifiers: Urinary tract infection type: site unspecified Hematuria presence: without hematuria Qualified Code(s): N39.0 - Urinary tract infection, site not specified Is this a current diagnosis for this admission?: Yes Plan: As above. - Time Time Spent with patient: 25-34 minutes Medications reviewed and adjusted accordingly: Yes Anticipated discharge: Home
[2017-08-28 11:53] LABS: ANION GAP 6 (5-19); BLOOD UREA NITROGEN 11 mg/dL (7-20); CALCIUM 8.2 mg/dL (8.4-10.2); CARBON DIOXIDE 17 mmol/L (22-30); CHLORIDE 113 mmol/L (98-107); CREATININE RESULT 0.49 mg/dL (0.52-1.25); GLUCOSE 302 mg/dL (75-110); POTASSIUM 3.5 mmol/L (3.6-5.0); SODIUM 135.9 mmol/L (137-145)
[2017-08-28] MEDS: CEFTRIAXONE 1 GM/D5W RTU 1 GM/50 ML RTUPB IV SCH (12:10)
[2017-08-28] MEDS ORDERED: POTASSIUM CHLORIDE 10 MEQ TABLET.SA PO ONE (13:30)
[2017-08-28 18:07] LABS: ANION GAP 11 (5-19); BLOOD UREA NITROGEN 12 mg/dL (7-20); CALCIUM 8.7 mg/dL (8.4-10.2); CARBON DIOXIDE 17 mmol/L (22-30); CHLORIDE 111 mmol/L (98-107); CREATININE RESULT 0.61 mg/dL (0.52-1.25); GLUCOSE 273 mg/dL (75-110); POTASSIUM 3.5 mmol/L (3.6-5.0)
[2017-08-28] MEDS: 1/2 NORMAL SALINE 1,000 ML IV PRN (23:08)
[2017-08-29 01:46] LABS: ANION GAP 10 (5-19); BLOOD UREA NITROGEN 10 mg/dL (7-20); CALCIUM 8.5 mg/dL (8.4-10.2); CARBON DIOXIDE 18 mmol/L (22-30); CHLORIDE 112 mmol/L (98-107); CREATININE RESULT 0.53 mg/dL (0.52-1.25); GLUCOSE 225 mg/dL (75-110); POTASSIUM 3.6 mmol/L (3.6-5.0); SODIUM 139.9 mmol/L (137-145)
[2017-08-29] MEDS: PHENAZOPYRIDINE HCL 100 MG TABLET PO SCH (05:05)
[2017-08-29] MEDS: INSULIN REG, HUMAN 100 UNIT/ML 3 ML VIAL (PYX) SUBCUT PRN ×2 (07:53→12:28)
[2017-08-29] MEDS: 1/2 NORMAL SALINE 1,000 ML IV PRN (07:54)
[2017-08-29] MEDS: KETOROLAC TROMETHAMINE INJ/PF 30 MG/1 ML SDV IV PRN (08:08)
[2017-08-29 09:31] LABS: ABSOLUTE BASOPHILS # (AUTO) 0.1 10^3/uL (0.0-0.2); ABSOLUTE LYMPHOCYTES (AUTO) 1.6 10^3/uL (0.5-4.7); ABSOLUTE MONOCYTES (AUTO) 0.9 10^3/uL (0.1-1.4); ABSOLUTE NEUT (AUTO) 9.1 10^3/uL (1.7-8.2); EOSINOPHILS % (AUTO) 0.4 % (0-6); HEMATOCRIT 32.3 % (36.0-47.0); HGB HCT DIFFERENCE 0.7; LYMPHOCYTES % (AUTO) 13.4 % (13-45); MEAN CORPUSCULAR HGB CONC 34.1 g/dL (32.0-36.0); MEAN CORPUSCULAR VOLUME 85 fl (80-97); MONOCYTES % (AUTO) 7.5 % (3-13); RED BLOOD COUNT 3.79 10^6/uL (3.72-5.28); RED CELL DISTRIBUTION WIDTH 14.7 % (11.5-14.0); SEGMENTED NEUTROPHILS % (AUTO) 77.7 % (42-78); WHITE BLOOD COUNT 11.7 10^3/uL (4.0-10.5)
[2017-08-29] MEDS: FENOFIBRATE NANOCRYSTALLIZED 145 MG TABLET PO SCH (09:33)
[2017-08-29] MEDS: FAMOTIDINE 20 MG TABLET PO SCH (09:33)
[2017-08-29] MEDS: INSULIN GLARGINE,HUM.REC.ANLOG 300 UNIT/3 ML INSULN.PEN SUBCUT SCH (09:35)
[2017-08-29] MEDS: ENOXAPARIN SODIUM INJ 40 MG/0.4 ML DISP.SYRIN SUBCUT SCH (09:38)
[2017-08-29] MEDS: NICOTINE 14 MG/24 HR PATCH.TD24 TD SCH (09:38)
[2017-08-29 09:57] LABS: ANION GAP 9 (5-19); BLOOD UREA NITROGEN 9 mg/dL (7-20); CALCIUM 8.7 mg/dL (8.4-10.2); CARBON DIOXIDE 19 mmol/L (22-30); CHLORIDE 108 mmol/L (98-107); CREATININE RESULT 0.49 mg/dL (0.52-1.25); GLUCOSE 283 mg/dL (75-110); POTASSIUM 3.7 mmol/L (3.6-5.0); SODIUM 136.4 mmol/L (137-145)
[2017-08-29] MEDS: CEFTRIAXONE 1 GM/D5W RTU 1 GM/50 ML RTUPB IV SCH (12:28)
[2017-08-29 12:55] VITALS: BP 128/71
--- NOTE | 2017-08-29 13:19 | DISCHARGE SUMMARY E ---
Discharge Summary NAME: ADRIEL VIVAR : 1955 AGE: 61Y ADMITTED: 08/28/2017 DISCHARGED: 08/29/2017 CODE STATUS: FULL CODE. PRIMARY CARE PROVIDER: [facility] DISCHARGE DIAGNOSIS INCLUDES: 1. Pyelonephritis. 2. E. coli bacteremia secondary to #1. 3. Sepsis secondary to #1 and #2 which has resolved. 4. Hypokalemia which improved. 5. Poorly controlled diabetes mellitus, type 2. 6. Hypertriglyceridemia. 7. Dyslipidemia. DISCHARGE MEDICATIONS INCLUDE: 1. Metformin 850 mg p.o. b.i.d., 60 capsules, 0 refills. 2. Cipro 500 mg p.o. b.i.d., 14 tablets, 0 refills. DIET: Diabetic. ACTIVITY: As tolerated. DIAGNOSTICS: Lab values are as follows. Hematology obtained on 08/29/2017: WBCs are 11.7, hemoglobin is 11.0, hematocrit is 32.2, platelet count is 215,000. Venous blood gas obtained on 08/26/2017 has a pH of 7.24, PCO2 is 37.6, bicarb is 15. Chemistry obtained on 08/29/2017: Sodium is 136, potassium 3.7, chloride is 108, carbon dioxide 19, BUN 9, creatinine 0.49, glucose 238, A1c is 11.2, lactic acid is 1.2, calcium is 8.7, triglycerides are 514, cholesterol is 196, LDL 41, HDL 22, lipase is 24.5, TSH is 0.51. Total bilirubin is 1, AST 25, ALT 25, alk phos 216, total protein 9.0, albumin 3.9. Urinalysis obtained on 08/26/2017: Color yellow, appearance cloudy, pH 5.0, specific gravity is 1.018, protein 100, glucose greater than 500, ketones 80, occult blood small, nitrite negative, bilirubin negative, urobilinogen is 2.0, leukocyte esterase is trace, WBCs are 63, RBCs 3, casts 5, epithelial squamous cells 14. Serology obtained on 08/26/2017: Influenza A and B are negative. Urine culture obtained on 08/26/2017 reveals E. coli and group B strep which is sensitive to everything but ampicillin. Blood cultures obtained on 08/26/2017: One set does reveal E. coli. Acute abdominal series obtained on 08/26/2017 reveals no radiographic evidence of acute abdominal disease. Limited CT scan obtained on 08/26/2017 reveals ventral hernia with nonobstructive bowel. EKG obtained on 08/26/2017 reveals sinus tachycardia. PHYSICAL EXAMINATION: GENERAL: On examination, the patient is a well-developed, well-nourished 61-year-old female who is awake, alert, and oriented to person, place, time, situation. She is verbal, conversational, does not appear to be in any acute distress. VITAL SIGNS: As follows: Temperature is 97.8, pulse 91, respirations 18, blood pressure 133/79, oxygen saturation is 93% on room air. SKIN: Warm and dry. No rash, not diaphoretic. HEENT: Pupils equal, round, reactive to light and accommodation. Conjunctivae are pink. No JVP. CARDIOVASCULAR: Heart is regular. There is no murmur or rub. CHEST: Clear, symmetrical, unlabored. ABDOMEN: Soft, nontender, nondistended. BACK: No CVA tenderness or sacral edema. EXTREMITIES: No clubbing, cyanosis, edema. PSYCHIATRIC: Very flat affect. HISTORY OF PRESENT ILLNESS: The patient is a 61-year-old female with a past medical history of diabetes mellitus, type 2. The patient presented to the emergency department with a chief complaint of a week's worth of nausea and vomiting. Apparently the patient states that she did have urinary symptoms, including dysuria, which she was attributing to being possibly dehydrated. The patient had stated that she had also had some urinary frequency as well as lower back pain. The patient stated that previously she was compliant with her medications but due to the past year has not taken any medications due to being unable to see a provider and have her medications refilled. The patient had been accepted at [facility] for mid September and was trying to hold up until that time. Upon presentation to the emergency department the patient had a UA that was highly suggestive of UTI as well as sodium of 129, potassium 3.9, her glucose was found to be 340 and A1c of 11. The patient's CT with renal stone protocol was found to be unremarkable; however, given these findings the patient was referred to the hospitalist for admission and management. HOSPITAL COURSE: The patient was admitted to PCU. The patient was aggressively hydrated and the patient's blood sugars improved accordingly. The patient was started on sliding-scale coverage with a minor dose of basal Lantus. The patient's blood sugars mainly corrected with volume. The patient's urine culture was found to be polymicrobial and consisted of a group B strep as well as E. coli. Interestingly, the patient had a set of blood cultures that revealed the same E. coli bacteria; however, since the patient has been receiving antibiotics she has had no further tachycardia and no evidence of sepsis response. The patient's white count has normalized. No evidence of fevers, chills, tachycardia, and so forth. The patient's repeat blood cultures are pending. The patient is quite concerned about financial burden of medications at this time. Additionally, the patient states that she will not inject insulin if given to her. After discussion with the patient, it sounds as if her blood glucose was very well controlled with 500 mg of metformin twice daily. The patient reports acceptable A1c's as well as continuing to watch her diet. The patient denies ever having diabetic ketoacidosis nor lactic acidosis. After hearing the patient's plight, is agreeable to starting the patient on a slightly increased dose of metformin at 850 mg versus her 500 mg. The patient is in agreeance to this plan. Additionally, the patient's antibiotic coverage will be transitioned to complete a complete 10 days of antibiotic coverage with Cipro. This is also on the 4 dollar list. The patient does believe that she can obtain these medications for 8 dollars and subsequently will follow up with her already scheduled appointment at [facility]. The patient has had no further nausea or vomiting since presentation and initiation of antibiotic therapy. Patient, although has had urinary tract infections in the past, has denied having a previous bout of pyelonephritis. DISCHARGE PLANNING: Patient is advised to follow up with a primary care provider within 1-2 weeks for hospital followup. At that time, do recommend repeat chemistries given patient will be discharged on 2 potentially nephrotoxic medications. Time spent on this discharge, including assessment/plan, physical examination, patient education, is 25 minutes. DICTATING PHYSICIAN: NORRIS NUÑEZ NP [id number] PHY#: [id number] ID: [id number] JOB#: [id number] ACCT: [id number] cc:NORRIS NUÑEZ NP > [facility]
== END 2017-08-29 15:00 | disposition home or self-care (01) | DRG 871 ==
LOC: ER 10:30 → EH 15:09 → INTOOBSV 15:09 → 3S 17:32 → OBSVTOIN 08-28 07:43
PROVIDERS: ADMIT Internal Medicine; ATTEND Internal Medicine
PROC: 3E0F73Z Introduction of Anti-inflammatory into Respiratory Tract, Via Natural or Artificial Opening (ICD-10-PCS; principal; 2017-08-27)
DX: A41.9 Sepsis, unspecified organism (principal); E11.10 Type 2 diabetes mellitus with ketoacidosis without coma; E87.1 Hypo-osmolality and hyponatremia; N12 Tubulo-interstitial nephritis, not specified as acute or chronic; B96.20 Unspecified Escherichia coli [E. coli] as the cause of diseases classified elsewhere; E87.6 Hypokalemia; E78.1 Pure hyperglyceridemia; E78.5 Hyperlipidemia, unspecified; B95.1 Streptococcus, group B, as the cause of diseases classified elsewhere; K43.9 Ventral hernia without obstruction or gangrene; R00.0 Tachycardia, unspecified; I10 Essential (primary) hypertension; E86.0 Dehydration; F17.210 Nicotine dependence, cigarettes, uncomplicated; Z59.9 Problem related to housing and economic circumstances, unspecified; Z91.14 Patient's other noncompliance with medication regimen
CPT/HCPCS: 36415; 74022; 76380; 80048; 80053; 80061; 81001; 82803; 82962; 83036; 83605; 83690; 83735; 84443; 85025; 87040; 87077; 87086; 87088; 87186; 87804; 93005; 93010; 96361; 96365; 96375; 99285; G0378; J0696; J1650; J1815; J1885; J2270; J2405; J3480; J3490; J7030

== ENCOUNTER → 2017-10-26 | Outpatient (CLI) | payer OTHER ==
--- NOTE | 2017-10-26 14:40 | RADIOLOGY REPORT (SQ) ---
EXAM DESCRIPTION: MRI LUMBAR SPINE WITHOUT COMPLETED DATE/TIME: 10/26/2017 1:04 pm REASON FOR STUDY: M54.16 RADICULOPATHY, LUMBAR REGION M54.16 RADICULOPATHY, LUMBAR REGION COMPARISON: None. TECHNIQUE: Sagittal and Axial imaging includes T1, T2, STIR and gradient echo sequences. Coronal T2/ HASTE imaging. LIMITATIONS: None. FINDINGS: VISUALIZED UPPER ABDOMEN: Limited evaluation. No acute or suspicious findings suggested. SEGMENTATION: No transitional anatomy. The lowest well-developed disc space is labeled L5-S1. ALIGNMENT: Anatomic. VERTEBRAE: Intact. BONE MARROW: Normal. No marrow replacement or reactive changes. DISC SIGNAL: Diffuse decreased T2 weighted intervertebral disc signal at L2-3, L3-4, L4-5, and L5-S1. POSTERIOR ELEMENTS: Generally intact. No pars defect evident. HARDWARE: None in the spine. CORD AND CONUS: Normal in size and signal intensity. Conus at the T12-L1 level. SOFT TISSUES: No aortic aneurysm seen. No bulky retroperitoneal adenopathy or mass. No paraspinal mas s or fluid. T11-12: At the upper edge of the field of view. Unremarkable. T12-L1: Unremarkable L1-L2: Unremarkable L2-L3: Mild diffuse posterior disc bulging is present with moderate bilateral facet and ligament hype rtrophy right greater than left. Mild central canal narrowing. Moderate right, mild left foraminal narrowing without definite exiting L2 nerve root impingement. L3-L4: Mild diffuse posterior disc bulge and bony spurring with moderate bilateral facet and ligament hypertrophy. Mild central canal narrowing. Moderate right, mild left foraminal narrowing. No defi nite exiting L3 nerve root impingement L4-L5: Mild diffuse posterior disc bulge and bony spurring, mild bilateral facet and ligament hypertr ophy. No central stenosis. There is mild right foraminal narrowing, minimal left foraminal narrowin g. 7 mm synovial cyst protruding off the dorsal posterior aspect of the right L4-5 facet joint best shown on sagittal T2 image 5 and axial T2 image 21 L5-S1: No significant spinal stenosis or exit foraminal stenosis. SACRUM: Visualized upper sacrum intact. OTHER: No other significant findings. IMPRESSION: Diffuse degenerative changes as above. TECHNICAL DOCUMENTATION: JOB ID: [id number]- All Rights Reserved
== END ==
LOC: RAD 12:10
PROVIDERS: ATTEND Family Medicine
DX: M54.16 Radiculopathy, lumbar region (principal)
CPT/HCPCS: 72148

== ENCOUNTER 2018-12-13 14:42 | Emergency (ER) | payer SELFPAY ==
[2018-12-13] MEDS ORDERED: NITROGLYCERIN/D5W 50 MG/250 ML RTUINJ IV ONE (15:24)
[2018-12-13] MEDS ORDERED: LORAZEPAM INJ 2 MG/1 ML VIAL IV ONE ×3 (15:29→21:44)
[2018-12-13] MEDS ORDERED: HEPARIN SODIUM,PORCINE/D5W 25,000 UNIT/250 ML RTUINJ IV PRN (15:31)
[2018-12-13] MEDS ORDERED: HEPARIN SOD (PORCINE) 1,000 UNIT/ML 10 ML VIAL IV ONE (15:31)
[2018-12-13 15:42] LABS: ABSOLUTE BASOPHILS # (AUTO) 0.1 10^3/uL (0.0-0.2); ABSOLUTE EOSINOPHILS # (AUTO) 0.1 10^3/uL (0.0-0.6); ABSOLUTE LYMPHOCYTES (AUTO) 2.8 10^3/uL (0.5-4.7); ABSOLUTE MONOCYTES (AUTO) 0.7 10^3/uL (0.1-1.4); ABSOLUTE NEUT (AUTO) 8.8 10^3/uL (1.7-8.2); BASOPHILS % (AUTO) 0.4 % (0-2); EOSINOPHILS % (AUTO) 1.1 % (0-6); HEMOGLOBIN 15.4 g/dL (12.0-15.5); LYMPHOCYTES % (AUTO) 22.4 % (13-45); MEAN CORPUSCULAR HEMOGLOBIN 31.8 pg (27.0-33.4); MEAN CORPUSCULAR VOLUME 91 fl (80-97); MONOCYTES % (AUTO) 5.8 % (3-13); PLATELET COUNT 312 10^3/uL (150-450); RED BLOOD COUNT 4.84 10^6/uL (3.72-5.28); RED CELL DISTRIBUTION WIDTH 13.8 % (11.5-14.0); SEGMENTED NEUTROPHILS % (AUTO) 70.3 % (42-78); TOTAL CELLS COUNTED % (AUTO) 100 %; WHITE BLOOD COUNT 12.5 10^3/uL (4.0-10.5)
[2018-12-13 15:49] LABS: ALANINE AMINOTRANSFERASE 25 U/L (9-52); ALBUMIN 4.9 g/dL (3.5-5.0); ALKALINE PHOSPHATASE 84 U/L (38-126); ANION GAP 10 (5-19); ASPARTATE AMINO TRANSFERASE 60 U/L (14-36); BILIRUBIN,DIRECT 0.3 mg/dL (0.0-0.4); BILIRUBIN,TOTAL 0.5 mg/dL (0.2-1.3); BLOOD UREA NITROGEN 28 mg/dL (7-20); CARBON DIOXIDE 28 mmol/L (22-30); CHLORIDE 101 mmol/L (98-107); GLUCOSE 207 mg/dL (75-110); POTASSIUM 4.6 mmol/L (3.6-5.0); SODIUM 138.8 mmol/L (137-145); TOTAL PROTEIN 8.3 g/dL (6.3-8.2)
[2018-12-13 15:57] LABS: INTERNATIONAL RATION (INR) 0.85
[2018-12-13 15:58] LABS: PARTIAL THROMBOPLASTIN TIME 31.6 SEC (23.5-35.8)
--- NOTE | 2018-12-13 15:59 | RADIOLOGY REPORT (SQ) ---
EXAM DESCRIPTION: CHEST SINGLE VIEW COMPLETED DATE/TIME: 12/13/2018 3:53 pm REASON FOR STUDY: chest pain COMPARISON: None. EXAM PARAMETERS: NUMBER OF VIEWS: One view. TECHNIQUE: Single frontal radiographic view of the chest acquired. RADIATION DOSE: NA LIMITATIONS: None. FINDINGS: LUNGS AND PLEURA: No opacities, masses or pneumothorax. No pleural effusion. MEDIASTINUM AND HILAR STRUCTURES: No masses. Contour normal. HEART AND VASCULAR STRUCTURES: Heart normal in size. Normal vasculature. BONES: No acute findings. HARDWARE: None in the chest. OTHER: No other significant finding. IMPRESSION: NO ACUTE RADIOGRAPHIC FINDING IN THE CHEST. TECHNICAL DOCUMENTATION: JOB ID: [id number] [email or web address]- All Rights Reserved Reading location - IP/workstation name: [email or web address]
[2018-12-13 16:00] LABS: CREATINE KINASE MB 15.8 ng/mL (<4.55)
[2018-12-13 16:02] LABS: CALCIUM 12.5 mg/dL (8.4-10.2); TROPONIN I 4.16 ng/mL
[2018-12-13] MEDS ORDERED: TICAGRELOR 90 MG TABLET PO SCH (16:30)
[2018-12-13 17:09] LABS: APPEARANCE,URINE CLEAR; BILIRUBIN,URINE NEGATIVE (NEGATIVE); COLOR,URINE STRAW; GLUCOSE, URINE 50 mg/dL (NEGATIVE); KETONES,URINE NEGATIVE (NEGATIVE); LEUKOCYTE ESTERASE,URINE NEGATIVE (NEGATIVE); NITRITE,URINE NEGATIVE (NEGATIVE); PROTEIN,URINE NEGATIVE (NEGATIVE); URINE SPECIFIC GRAVITY 1.008; UROBILINOGEN,URINE NEGATIVE mg/dL (<2.0)
[2018-12-13] MEDS ORDERED: METOPROLOL TARTRATE 25 MG TABLET PO ONE (17:12)
--- NOTE | 2018-12-13 17:12 | ER Document Report ---
ED General - General Chief Complaint: Chest Pain Time Seen by Provider: 12/13/18 15:18 Primary Care Provider: MARC KAUFMAN MD [Primary Care Provider] - Follow up as needed Mode of Arrival: Ambulatory Information source: Patient TRAVEL OUTSIDE OF THE [place] IN LAST 30 DAYS: No COUNTRY TRAVELED TO/FROM: [facility] Notes: Patient is a pleasant 63-year-old female [id number] diabetic smoker with no history of cardiac disease or hypertension presents to the emergency department with report of a 3-day history of intermittent chest pain, with worsening of the chest pain at 2 AM this morning. She reports at 2 AM this morning the chest pain was a 6 out of 10 associated with nausea and dyspnea. She reported no back pain or abdominal pain. She states after taking an antiacid the chest pain seemed to get better but then it 1400 today she noted a small amount of chest discomfort recurring and came in for evaluation. By the time she laid down in bed and I evaluated her, she denied any chest pain whatsoever, also denying dyspnea or nausea with the patient reports no cough or congestion or fever or chills or constipation or diarrhea. She states she has had 2 aspirin earlier in the day. - Related Data Allergies/Adverse Reactions: No Known Allergies Allergy (Verified 08/26/17 10:31) Past Medical History - General Information source: Patient - Social History Smoking Status: Current Every Day Smoker Frequency of alcohol use: None Drug Abuse: None Lives with: Alone Family History: Reviewed & Not Pertinent - Past Medical History Cardiac Medical History: Reports: Hx Hypertension Endocrine Medical History: Reports: Hx Diabetes Mellitus Type 2 Renal/ Medical History: Denies: Hx Peritoneal Dialysis Past Surgical History: Reports: Hx Appendectomy Review of Systems - Review of Systems -: Yes All other systems reviewed and negative Physical Exam - Vital signs Vitals: Temp Pulse Resp BP Pulse Ox 98.2 F 99 18 129/90 H 98 12/13/18 15:05 12/13/18 15:05 12/13/18 15:05 12/13/18 15:05 12/13/18 15:05 - Notes Notes: PHYSICAL EXAMINATION: GENERAL: Well-appearing, well-nourished and in no acute distress. HEAD: Atraumatic, normocephalic. EYES: Pupils equal round and reactive to light, extraocular movements intact, conjunctiva are normal. ENT: Nares patent, oropharynx clear without exudates. Moist mucous membranes. NECK: Normal range of motion, supple without lymphadenopathy LUNGS: Breath sounds clear to auscultation bilaterally and equal. No wheezes rales or rhonchi. HEART: Regular rate and rhythm without murmurs. No reproducible chest wall pain. ABDOMEN: Soft, nontender, nondistended abdomen. No guarding, no rebound. No ma sses appreciated. Female : Rectal exam patient was heme-negative. Musculoskeletal: Normal range of motion, no pitting or edema. No cyanosis. NEUROLOGICAL: Cranial nerves grossly intact. Normal speech, normal gait. Normal sensory, motor exams PSYCH: Normal mood, normal affect. SKIN: Warm, Dry, normal turgor, no rashes or lesions noted. Course - Re-evaluation Re-evalutation: 12/13/18 17:08 On arrival, patient had EKG #1 performed at 1507 as interpreted by me showed over [address] elevation in leads III and slightly less than [address] elevation in aVF with Q waves with some lateral reciprocal changes with concern for recent ST elevation VA that the patient may have suffered at 2 AM based upon history and the patient being completely pain-free at the current time. The patient was heme-negative from below and was started on heparin and a low dose nitroglycerin drip at 5 mcg as she was pain-free. Blood pressure remained stable. 12/13/18 17:12 Repeat EKG at 1542 as interpreted by me showed normal sinus rhythm heart rate of 96. Again there was Q waves inferiorly with ST segment elevation, although it did not meet criteria for TPA. Likewise, given that the patient was pain-free with the worst of the chest pain occurring over 13 hours prior, there was no indication for TPA. Initial discussion was undertaken with Dr. Johnson at [facility] cardiology service who agreed with the management and plan and no TPA after reviewing the history and EKGs, but there was no bed available at that facility. Discussion was undertaken with Dr. Alves at [facility] and he agreed to accept the patient in transfer and agreed with management and plan. He further requested giving the patient Brilinta 180 mg and metoprolol 12.5 mg. Patient is still pain-free at the time and vital signs are stable. Again patient ready had aspirin earlier in the day. Troponin was elevated at 4 and other lab studies were normal. Vital signs still remained stable. 12/13/18 17:13 12/13/18 17:18 - Vital Signs Vital signs: Temp Pulse Resp BP Pulse Ox 98.2 F 99 23 H 120/91 H 98 12/13/18 15:05 12/13/18 15:05 12/13/18 16:46 12/13/18 16:46 12/13/18 16:46 - Laboratory Result Diagrams: 12/13/18 15:19 12/13/18 15:19 Laboratory results interpreted by me: 12/13/18 12/13/18 12/13/18 15:19 15:19 15:19 WBC 12.5 H Absolute Neutrophils 8.8 H BUN 28 H Est GFR (Non-Af Amer) 54 L Glucose 207 H Calcium 12.5 H* AST 60 H CK-MB (CK-2) 15.80 H Total Protein 8.3 H Critical Care Note - Critical Care Note Total time excluding time spent on procedures (mins): 64 Discharge - Discharge Clinical Impression: Elevated troponin I level STEMI (ST elevation myocardial infarction) Qualifiers: Involved coronary artery: unspecified coronary artery Qualified Code(s): I21.3 - ST elevation (STEMI) myocardial infarction of unspecified site Condition: Stable Disposition: Critical access hospital Referrals: MARC KAUFMAN MD [Primary Care Provider] - Follow up as needed
[2018-12-13] MEDS ORDERED: ATORVASTATIN CALCIUM 40 MG TABLET PO ONE (18:10)
--- NOTE | 2018-12-13 20:56 | EKG REPORT ---
SEVERITY:- ABNORMAL ECG - SINUS RHYTHM ABNORMAL T, CONSIDER ISCHEMIA, DIFFUSE LEADS : Confirmed by: Kiersten Mcbride MD 13-Dec-2018 20:55:15
--- NOTE | 2018-12-13 20:56 | EKG REPORT ---
SEVERITY:- ABNORMAL ECG - SINUS RHYTHM ABNORMAL T, CONSIDER ISCHEMIA, INFERIOR LEADS : Confirmed by: Kiersten Mcbride MD 13-Dec-2018 20:55:09
[2018-12-13 20:58] VITALS: BP 105/80
== END 2018-12-13 22:00 | disposition short-term general hospital (02) ==
LOC: ER 14:42
DX: I21.3 ST elevation (STEMI) myocardial infarction of unspecified site (principal); F41.9 Anxiety disorder, unspecified; R07.9 Chest pain, unspecified; E11.9 Type 2 diabetes mellitus without complications; F17.200 Nicotine dependence, unspecified, uncomplicated
CPT/HCPCS: 93005; 96376; 99291; 96375; 96365; 96366; 96368; 36415; 82553; 83735; 85025; 85610; 85730; 80053; 81001; 84484; 71045; 93010; J1644 ×2; J2060; J3490

== ENCOUNTER → 2019-02-06 | Outpatient (CLI) | payer SELFPAY ==
--- NOTE | 2019-02-06 18:08 | RADIOLOGY REPORT (SQ) ---
EXAM DESCRIPTION: U/S EXTREMITY NONVASCULAR LTD COMPLETED DATE/TIME: 02/06/2019 5:49 pm REASON FOR STUDY: M79.9 SOFT TISSUE DISORDER, UNSPECIFIED M79.9 SOFT TISSUE DISORDER, UNSPECIFIED COMPARISON: None. TECHNIQUE: Static and real time villalba scale ultrasound Doppler spectral analysis, and color Doppler a cquired in the right calf. LIMITATIONS: None. FINDINGS: Imaging of the medial/anterior right calf shows an elongated fluid collection. No Doppler signal is seen within this collection. IMPRESSION: Fluid collection in the medial calf. Possible hematoma. Any relation to the knee is no t clear. TECHNICAL DOCUMENTATION: JOB ID: [id number] [employer]- All Rights Reserved Reading location - IP/workstation name: [email or web address]
== END ==
LOC: RAD 17:22
PROVIDERS: ATTEND Internal Medicine Cardiovascular Disease
DX: M79.9 Soft tissue disorder, unspecified (principal)
CPT/HCPCS: 76882

== ENCOUNTER → 2019-03-31 | Outpatient (CLI) | payer SELFPAY | LOC: LAB 11:49 | DX: E11.8 Type 2 diabetes mellitus with unspecified complications (principal) | CPT/HCPCS: 36415; 83036; 84443 ==